=== PATIENT | male | born 1970 | race Two or more races ===

== ENCOUNTER 2019-04-25 09:40 | Outpatient (CLI) | payer OTHER ==
--- NOTE | 2019-04-25 18:00 | Consultation ---
DATE OF CONSULTATION: 04/25/2019 CHIEF COMPLAINT: Abdominal pain. HISTORY OF PRESENT ILLNESS: This is a very pleasant 48-year-old male with diagnosis of HIV and prior history of crystal meth use, who presented with complaint of the abdominal pain and is periumbilical in the lower part for many many years. It is very positional. He states when he stretches his abdomen, the pain goes away. Denies any nausea or vomiting. Denies any dysphagia. Denies any odynophagia. Denies any melena. Denies any hematochezia. No sign or symptoms of bleeding. No weight loss. The patient complained of some mild constipation. Some symptoms of GERD. Also complained of some gas and bloating. PAST MEDICAL HISTORY: HIV. PAST SURGICAL HISTORY: None. MEDICATIONS: HIV medications. FAMILY HISTORY: No family history of GI malignancies. SOCIAL HISTORY: The patient drinks socially. Denies tobacco usage. He used to use crystal meth, quit 2 years ago. ALLERGIES: No known drug allergies. REVIEW OF SYSTEMS: A 10-point review of systems was performed and pertinent positives in HPI. PHYSICAL EXAMINATION: GENERAL: This is a well-developed male in no acute distress. HEENT: Normocephalic and atraumatic. Sclerae anicteric. NECK: Supple. No evidence of obvious lymphadenopathy. CARDIOVASCULAR: Regular rate and rhythm. Plus S1 and S2. No obvious murmur. LUNGS: Clear to auscultation bilaterally. ABDOMEN: Positive bowel sounds. Soft, nontender. No rebound. No guarding. No peritoneal sign. EXTREMITIES: No cyanosis. No clubbing. No edema. ASSESSMENT: 1. HIV. 2. GERD. 3. Mild constipation. 4. Gas and bloating. PLAN: At this time, the abdominal pain is nonspecific. There is no alarming sign and symptoms. It seems to be positional and going away when he does stretching, so maybe musculoskeletal pain. Given some GERD symptoms, we are going to start him on omeprazole. He was also given some Align for probiotics given gas and bloating. The patient is currently taking the fiber for constipation and according to him, it is working, so we are going to monitor. Modesto Kennedy M.D. DR: Harley JOB#: [id number] CC:
[2019-04-26] MEDS ORDERED: UNOBMED (15:53)
== END 2019-04-25 11:40 | disposition home or self-care (01) ==
LOC: PAN 09:40
DX: R10.9 Unspecified abdominal pain (principal); B20 Human immunodeficiency virus [HIV] disease; K59.00 Constipation, unspecified; K21.9 Gastro-esophageal reflux disease without esophagitis; R14.0 Abdominal distension (gaseous)